=== PATIENT | male | born 1945 | race Caucasian/White ===

== ENCOUNTER → 2016-07-16 | Outpatient (CLI) | payer OTHER ==
--- NOTE | 2016-07-16 14:16 | DX ---
PA and Lateral Chest Clinical Indications: J 42, J 44.9, bronchitis, COPD Comparison: February 06, 2016 Findings: The lungs are clear, and no infiltrate, consolidation or masses are found. There is chroni c or recurrent, mild adria hilar bronchial wall thickening. The heart and pulmonary vessels are normal . There are no pleural effusions and no pneumothorax. There is stable chronic degenerative spurring in the lower thoracic spine. 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 Impression: Nothing acute identified.
== END ==
LOC: FLAB 12:37
PROVIDERS: ATTEND Family Medicine
DX: Z03.89 Encounter for observation for other suspected diseases and conditions ruled out (principal)

== ENCOUNTER 2017-02-03 14:38 | Emergency (ER) | payer OTHER ==
[2017-02-03 14:44] VITALS: RESP 16; O2SAT 96
--- NOTE | 2017-02-03 15:02 | EDPHY ---
HPI/HX/ROS/PE/MDM Narrative: CHIEF COMPLAINT: Left arm pain HPI: This patient is a 71 year old male complaining of left upper arm pain secondary to a fall one hour ago. He slipped on wet carpet while wearing slick-bottomed shoes, and caught himself with his left arm, in a bent position. He thinks he heard a pop in his arm at that time. He has pain to his anterior upper arm. He denies clavicle or shoulder pain. No other trauma. He has no history of surgery or other problems with his left arm or shoulder. No fever, chills, or other associated complaints. REVIEW OF SYSTEMS: Aside from elements discussed in the HPI, a comprehensive 10-point review of systems was reviewed and is negative. PMH: Denies. SOCIAL HISTORY: at bedside. PHYSICAL EXAM: General: Patient is alert, in no acute distress. Left arm: Tenderness to proximal anterior humerus. No deformity. Range of motion limited due to pain. Neuro: Oriented x3. Normal motor function. Normal sensory function. Portions of this note were transcribed by an ED scribe. I personally performed the history, physical exam, and medical decision making; and confirm the accuracy of the information in the transcribed note. ED Course: Plan for sling, x-ray. 15:35 Reviewed x-ray. No osseous abnormalities noted. Pending radiologist report. 15:45 Dr. Monzon, radiologist, concurs. No acute processes. Discussed results with patient. Plan to discharge home in good condition. He declines pain medication. Follow up and return precautions discussed. He is comfortable with this plan. MDM: This patient presents with signs and symptoms of a left shoulder sprain, confirmed by negative XRs. I think he requires orthopedic followup and possible outpatient MRI. The patient was placed in a sling here. He declined pain medication. He denies other injury. - Data Points Imaging Results: Imaging Impressions Shoulder X-Ray 02/03/17 15:06 Impression: No acute findings in the shoulder. Imaging: I viewed and interpreted images myself General Time Seen by Provider: 02/03/17 14:48 Initial Vital Signs: Initial Vital Signs Temperature (C) 36.6 C 02/03/17 14:40 Heart Rate 57 L 02/03/17 14:40 Respiratory Rate 16 02/03/17 14:40 Blood Pressure 151/78 H 02/03/17 14:40 O2 Sat (%) 96 02/03/17 14:40 O2 Delivery Mode Room Air Allergies/Adverse Reactions: No Known Allergies Allergy (Unverified 04/24/12 14:06) Home Medications: Medication Instructions Recorded Metoprolol 04/28/12 Percoset 04/28/12 Departure - Departure Disposition: Home, Routine, Self-Care Clinical Impression: Sprain of left shoulder Condition: Good Instructions: Shoulder Sprain (ED) Additional Instructions: 1. Rest, ice, elevation. 2. You may take Tylenol or Ibuprofen as directed on the packaging as needed for pain. 3. Follow up with an orthopedic surgeon within one week if pain persists. 4. Return to the emergency department for worsening pain, swelling, numbness, weakness or other concerns. Referrals: Akil Montenegro MD [Medical Doctor] - As per Instructions Report Scribed for: George Sharma Report Scribed by: Keila Maher Date of Report: 02/03/17 Time of Report: 15:02
[2017-02-03 16:01] VITALS: BP 144/74
[2017-02-03 16:02] VITALS: PULSE 56; TEMP 97.7
== END 2017-02-03 16:02 | disposition home or self-care (01) ==
DX: S43.402A Unspecified sprain of left shoulder joint, initial encounter (principal); W19.XXXA Unspecified fall, initial encounter

== ENCOUNTER → 2017-02-14 | Outpatient (CLI) | payer OTHER | LOC: FLAB 16:02 | PROVIDERS: ATTEND Family Medicine | DX: Z01.811 Encounter for preprocedural respiratory examination (principal); J44.9 Chronic obstructive pulmonary disease, unspecified; E78.5 Hyperlipidemia, unspecified; Z79.899 Other long term (current) drug therapy ==